=== PATIENT | female | born 1985 | race Caucasian/White ===

== ENCOUNTER 2020-08-24 11:57 | Outpatient (CLI) | payer BC, OTHER | END 2020-08-24 11:58 | disposition home or self-care (01) | LOC: LAB 11:57 | PROVIDERS: ATTEND Nurse Practitioner Obstetrics & Gynecology | DX: Z31.9 Encounter for procreative management, unspecified (principal) | CPT/HCPCS: 36415; 84144 ==

== ENCOUNTER 2020-10-06 08:00 | Outpatient (CLI) | payer BC, OTHER ==
[2020-10-06 13:27] LABS: HGB - HEMOGLOBIN 10.8 g/dL (12.0-16.0); MEAN PLATELET VOLUME 9.9 fL (7.9-10.8); RED CELL DISTRIBUTION WIDTH 14.1 % (12.0-15.0); WHITE BLOOD COUNT 4.6 x10^3/uL (4.8-10.8)
== END 2020-10-06 23:59 | disposition home or self-care (01) ==
LOC: LAB 08:00
PROVIDERS: ATTEND Nurse Practitioner Obstetrics & Gynecology
DX: Z31.9 Encounter for procreative management, unspecified (principal); D64.9 Anemia, unspecified
CPT/HCPCS: 36415; 83001; 85027; 86762; 86787

== ENCOUNTER 2021-12-29 08:00 | Outpatient (CLI) | payer BC ==
[2021-12-29 16:39] LABS: BILIRUBIN,URINE NEGATIVE (NEGATIVE); GLUCOSE, URINE (UA) NEGATIVE (NEGATIVE); KETONES,URINE (UA) NEGATIVE (NEGATIVE); LEUKOCYTE ESTERASE, URINE NEGATIVE (NEGATIVE); NITRITE,URINE NEGATIVE (NEGATIVE); OCCULT BLOOD,URINE NEGATIVE (NEGATIVE); PH,URINE 6.5 PH (5.0-7.5); PROTEIN,URINE NEGATIVE (NEGATIVE); UROBILINOGEN,URINE 0.2 (NORMAL) E.U./dL (NORMAL)
[2021-12-29 17:35] LABS: CLARITY,URINE CLEAR (CLEAR)
[2021-12-29 17:36] LABS: BACTERIA,URINE Few /HPF (None Seen); RBC,URINE None Seen /HPF (0-5); SQUAMOUS EPITHELIAL CELL,UR MOD Squamous (<= Few); WBC,URINE 0-3 /HPF (0-5)
== END 2021-12-29 23:59 | disposition home or self-care (01) ==
LOC: LAB.WC 08:00
PROVIDERS: ATTEND Obstetrics & Gynecology
DX: Z32.01 Encounter for pregnancy test, result positive (principal)
CPT/HCPCS: 81001; 87086

== ENCOUNTER 2021-12-30 15:08 | Outpatient (CLI) | payer BC ==
[2021-12-30 20:05] LABS: BASOPHILS # (AUTO) 0.1 10^3/uL (0.0-0.1); EOSINOPHILS # (AUTO) 0.2 10^3/uL (0.0-0.7); EOSINOPHILS % (AUTO) 4.3 %; HCT - HEMATOCRIT 36.3 % (37.0-47.0); HGB - HEMOGLOBIN 12.2 g/dL (12.0-16.0); LYMPHOCYTES # (AUTO) 1.5 10^3/uL (1.5-3.5); LYMPHOCYTES % (AUTO) 28.8 %; MEAN CORPUSCULAR HEMOGLOBIN 29.8 pg (27.0-31.0); MEAN CORPUSCULAR HGB CONC 33.6 g/dL (32.0-36.0); MEAN CORPUSCULAR VOLUME 88.8 fL (81.0-99.0); MEAN PLATELET VOLUME 10.8 fL (7.9-10.8); MONOCYTES # (AUTO) 0.5 10^3/uL (0.0-1.0); MONOCYTES % (AUTO) 10.2 %; NEUTROPHILS # (AUTO) 2.8 10^3/uL (1.5-6.6); NEUTROPHILS % (AUTO) 55.5 %; PLT - PLATELET COUNT 281 10^3/uL (130-450); RED BLOOD COUNT 4.09 10^6/uL (4.20-5.40); RED CELL DISTRIBUTION WIDTH 12.6 % (12.0-15.0); WHITE BLOOD COUNT 5.1 x10^3/uL (4.8-10.8)
[2022-01-02 12:06] LABS: HIV AG/AB 4TH GEN NON-REACTIVE (NON-REACTIVE)
[2022-01-02 15:22] LABS: HEPATITIS B SURFACE ANTIGEN NON-REACTIVE (NON-REACTIVE)
[2022-01-02 15:22] LABS: HEPATITIS C ANTIBODY NON-REACTIVE (NON-REACTIVE)
== END 2021-12-30 15:09 | disposition home or self-care (01) ==
LOC: LAB.S 15:08
PROVIDERS: ATTEND Obstetrics & Gynecology
DX: Z36.89 Encounter for other specified antenatal screening (principal)
CPT/HCPCS: 36415; 85025; 86592; 86762; 86787; 86803; 86850; 86900; 86901; 87340; 87389